=== PATIENT | female | born 1960 | race Caucasian/White ===

== ENCOUNTER → 2017-04-21 | Outpatient (CLI) | payer BC ==
--- NOTE | 2017-05-01 18:50 | RADIOLOGY REPORT PS360 ---
DIG MAMM-SCREEN JOE W/CAD CAD Screening ORDERING PHYSICIAN : SANDRA DYER PATIENT AGE: 57 years GENDER: Female COMPARISON: Previous mammograms: . . outside studies [facility]*April 2016 INDICATION: Routine screening no hormones no new complaints noncontributory family history TECHNIQUE: Standard CC and MLO images were obtained. R2 CAD reviewed. FINDINGS: Generalized fatty replacement of low-density breast. No dominant mass nor suspicious calcification. Subtle low-density areas of nodularity at the deep slightly lateral right and left breast are of noted but are most likely intramammary lymph nodes and would benefit from annual follow-up. Very subtle barely evident Vague small ovoid densities at the medial right and left breast are vaguely evident previous studies with no significant progression. IMPRESSION: ...... .. No suspicious findings. Most likely subtle small intramammary lymph nodes deep right and left breast. Similar to previous 2016 outside study. Follow-up in one year recommended and should be encouraged BI-RADS CATEGORY: 2_Benign RECOMMENDED FOLLOWUP: 12M 12 MONTH FOLLOW-UP (A letter has been sent to the patient regarding results of the study.) .... N
== END ==
LOC: RAD 16:46
DX: Z12.31 Encounter for screening mammogram for malignant neoplasm of breast (principal)
CPT/HCPCS: G0202